=== PATIENT | male | born 1985 | race Two or more races ===

== ENCOUNTER 2024-03-28 20:25 | Emergency (ER) | payer SELFPAY ==
[~2024-03-28] VITALS: Ht 172.7 cm; Wt 90.9 kg
[2024-03-28 20:44] VITALS: BP 106/71; PULSE 110; RESP 16; O2SAT 98
[2024-03-28] MEDS ORDERED: SODIUM CHLORIDE 0.9% 2,000 ML IV ONE (20:45)
[2024-03-28 21:29] LABS: Basophils # (auto) 0.1 10 ^3/uL (0-0.2); Basophils % (auto) 0.6 % (0.0-2.0); Eosinophils # (auto) 0 10 ^3/uL (0-0.8); Eosinophils % (auto) 0.1 % (0.0-7.0); Hematocrit 49.7 % (41.0-53.0); Hemoglobin 17.9 g/dL (13.5-17.5); Lymphocytes # (auto) 3.4 10 ^3/uL (0.4-5.4); Lymphocytes % (auto) 38.3 % (10.0-50.0); Mean Corpuscular Hemoglobin 35.1 pg (28.0-32.0); Mean Corpuscular Volume 97.4 fL (80.0-100.0); Monocytes # (auto) 0.9 10 ^3/uL (0-1.3); Monocytes % (auto) 9.7 % (0.0-12.0); Neutrophils # (auto) 4.5 10 ^3/uL (1.6-8.6); Neutrophils % (auto) 51.3 % (37.0-80.0); Nucleated Red Blood Cells % 0.1 %; Red Cell Distribution Width 13.8 % (11.8-14.3); White Blood Cell 8.8 10^3/uL (4.4-10.8)
[2024-03-28 21:44] LABS: Acetaminophen < 2.0 UG/ML (10.0-20.0); Alanine Aminotransferase 96 U/L (7-40); Albumin 4.5 g/dL (3.2-4.8); Alkaline Phosphatase 73 U/L (46-116); Anion Gap 10 (5-15); Aspartate Aminotransferase 96 U/L (13-40); BUN/Creatinine Ratio 5.6 (10.0-20.0); Blood Urea Nitrogen 9 mg/dL (9-23); Calcium 9.1 mg/dL (8.7-10.4); Carbon Dioxide 22 mmol/L (20-30); Chloride 113 mmol/L (98-107); Creatine Kinase IFCC 237 U/L (46-171); Glucose 111 mg/dL (74-106); Potassium 4.2 mmol/L (3.5-5.1); Sodium 145 mmol/L (136-145)
[2024-03-28 21:45] LABS: Bilirubin, Total 0.4 mg/dL (0.2-1.0); Salicylate < 3.0 mg/dL (2.8-20.0); Total Protein 7.7 g/dL (5.7-8.2)
[2024-03-28 21:52] LABS: Blood Alcohol 353.5 mg/dL (<10)
[2024-03-28] MEDS ORDERED: SODIUM CHLORIDE 0.9% 3,000 ML IV ONE (23:30)
== END 2024-03-29 00:20 | disposition left against medical advice (07) ==
LOC: EDBD 20:25 → ER 20:25
DX: R40.4 Transient alteration of awareness (principal); F10.10 Alcohol abuse, uncomplicated
CPT/HCPCS: 36415; 80053; 80320; 80329; 82550; 84484; 85025